=== PATIENT | female | born 1965 | race Caucasian/White ===

== ENCOUNTER 2020-04-07 15:56 | Emergency (ER) | payer OTHER, SELFPAY ==
--- NOTE | ~2020-04-07 | XR_ITS ---
EXAMINATION: XR chest 2V DATE: 04/07/2020 16:15 INDICATION: Wheezing and shortness of breath, history of COVID 19 TECHNIQUE: PA and lateral views of the chest are obtained. COMPARISON: None available FINDINGS: The lungs are free of acute opacities. There is no pleural effusion or pneumothorax. The ca rdiomediastinal silhouette is normal. There is mild thoracic spondylosis. IMPRESSION: 1. No acute cardiopulmonary abnormality. Reviewed, dictated and finalized at location A. RMATION DEVELOPER
[2020-04-07 16:00] VITALS: BP 161/106; PULSE 96; RESP 24; TEMP 36.9; O2SAT 100
--- NOTE | 2020-04-07 16:02 | ED.URI ---
HPI - URI/Sore Throat General Chief Complaint: Upper Respiratory Infection Stated Complaint: chest congestion sob Time Seen by Provider: 04/07/20 16:02 Source: patient and RN notes reviewed History of Present Illness HPI Narrative: Patient is a 55-year-old female who presents the urgent care with complaints of shortness of breath, wheezes, mild cough and chest congestion. Patient states that she was diagnosed with Covid in mid February, off quarantine on February 28 and has been symptomatic for approximately 1 month. Patient states she does not have a doctor and therefore has not followed up with anyone. Patient denies of any fever, nausea, vomiting, chest pain. States that her symptoms are fairly mild with having Covid. Patient has been using NyQuil without any relief. No other acute complaints. Denies any history of pneumonia or bronchitis. No acute distress noted. Patient aware of the plan of care. Some parts of this dictation were generated by voice recognition software and may contain typographical and/or grammatical inaccuracies. Related Data Allergies Allergy/AdvReac Type Severity Reaction Status Date / Time No Known Allergies Allergy Verified 04/07/20 16:09 Review of Systems Review of Systems: Narrative: CONSTITUTIONAL: Denies fever, chills, or sweats. EYES: Denies visual changes, redness, or discharge. ENT: Denies rhinorrhea, congestion, sore throat, or otalgia. CARDIOVASCULAR: Denies chest pain, palpitations, or edema. RESPIRATORY: Reports of cough, wheezing, dyspnea GASTROINTESTINAL: Denies abdominal pain, nausea, vomiting, or diarrhea. GENITOURINARY: Denies dysuria or hematuria. SKIN: Denies rash or itching. MUSCULOSKELETAL: Denies back pain, joint pain, or myalgia. NEUROLOGIC: Denies headache, numbness, or weakness. All other systems reviewed are negative, except as documented in HPI. PMFSH Comments At the time of my signature, I reviewed and agree with the nursing past medical, surgical, social, and family history. There is no relevant family history pertinent to the patient complaint. Exam Narrative: Exam Narrative: GENERAL: This is a well-nourished, well-developed patient, in no apparent distress. HEAD: normocephalic, atraumatic. EYES: PERRL. Sclera clear/white. Vision is grossly intact. EARS: External ears normal NOSE: External nose normal with no obvious nasal discharge, mild bilateral erythemic nares with clear rhinorrhea. THROAT: Mucous membranes moist, posterior pharynx clear. Moderate postnasal drainage NECK: Neck supple CARDIOVASCULAR: Regular rate and rhythm RESPIRATORY: Tight inspiratory and expiratory wheezes throughout, diminished bibasilar SKIN: warm, intact with no suspicious lesions or rash, good texture and turgor. NEURO: awake, alert, and oriented to person, place and time. There were no obvious focal neurologic abnormalities. EXTREMITIES: No clubbing, cyanosis, or edema. Course Vital Signs Vital signs: Vital Signs Temperature 98.5 F 04/07/20 16:00 Pulse Rate 96 04/07/20 16:00 Respiratory Rate 24 H 04/07/20 16:00 Blood Pressure 161/106 H 04/07/20 16:00 Pulse Oximetry 100 04/07/20 16:00 Temperature 98.5 F 04/07/20 16:00 Pulse Rate 96 04/07/20 16:00 Respiratory Rate 24 H 04/07/20 16:00 Blood Pressure 161/106 H 04/07/20 16:00 Pulse Oximetry 100 04/07/20 16:00 Reviewed-patient is informed that they may have pre-hypertension or hypertension based on a blood pressure reading in the department. I recommend the patient call the primary care provider listed on their discharge instructions or a physician of their choice this week to arrange follow-up for further evaluation of possible pre-hypertension or hypertension. MDM - URI/Sore Throat MDM Narrative Medical decision making narrative: Reviewed x-ray results with the patient. She is aware that chest x-ray was negative for pneumonia. Advised the patient, considering her up post Covid symptoms have not improved
== END 2020-04-07 16:35 | disposition home or self-care (01) ==
PROVIDERS: Emergency Provider Nurse Practitioner Family
DX: R05 Cough (principal); R06.2 Wheezing; Z86.16 Personal history of COVID-19
CPT/HCPCS: 71046; 99213; G0463

== ENCOUNTER 2022-08-23 14:02 | Emergency (ER) | payer OTHER, SELFPAY ==
[2022-08-23 14:06] VITALS: BP 143/101; PULSE 92; RESP 20; TEMP 37; O2SAT 100
--- NOTE | 2022-08-23 14:48 | ED.GENADULT ---
HPI - General Adult General Chief complaint: Eye Problems Stated complaint: eyes Source: patient Mode of arrival: ambulatory Limitations: no limitations History of Present Illness HPI narrative: Pt presents for evaluation of itching and redness to her eyes for the past 3 days. She wears glasses but not contacts. No discharge. No visual disturbance. She is not using any medications to assist with her symptoms. She is not aware of any allergies that she may have. Related Data Allergies Allergy/AdvReac Type Severity Reaction Status Date / Time No Known Allergies Allergy Verified 08/23/22 14:26 Review of Systems Review of Systems: CONSTITUTIONAL: Denies fever, chills, or sweats. EYES: Reports redness and itching to both eyes ENT: Denies rhinorrhea, congestion, sore throat, or otalgia. CARDIOVASCULAR: Denies chest pain, palpitations, or edema. RESPIRATORY: Denies cough or dyspnea. GASTROINTESTINAL: Denies abdominal pain, nausea, vomiting, or diarrhea. GENITOURINARY: Denies dysuria or hematuria. SKIN: Denies rash or itching. MUSCULOSKELETAL: Denies back pain, joint pain, or myalgia. NEUROLOGIC: Denies headache, numbness, dizziness, or weakness. PSYCHIATRIC: Denies anxiety or depression. [facility] Past Medical History Medical History (Updated 08/23/22 @ 15:21 by Giovany Rapp, GARMENT STEAMER, ) No pertinent past medical history Surgical History Surgical History No pertinent past surgical history Family History Family History Mother Family history non-contributory Social History Social History Smoking status: Never smoker Substance use: never Gender identity (if verbalized by the patient): Female Spiritual care concerns: No Exam Narrative: GENERAL: Well-appearing, well-nourished, and in no acute distress. HEAD: Normocephalic, atraumatic. EYES: PERRLA and EOMI. I do not appreciate any injection to, or discharge from her eyes ENT: Nares clear, no rhinorrhea or epistaxis. Mucous membranes moist. Oropharynx without tonsillar hypertrophy exudate or other lesions. Bilateral TMs pearly ramsay nonbulging NECK: Supple. No adenopathy or masses. No carotid bruits or JVD CHEST: Clear to auscultation. No respiratory distress. No wheezes rales or rhonchi HEART: Regular rate and rhythm. No murmur heard. Normal peripheral pulses. ABDOMEN: Soft, nontender, nondistended, normal active bowel sounds. EXTREMITIES: Normal range of motion. No edema. SKIN: Warm, dry, no rash. NEURO: No focal deficits. Alert and oriented x3. PSYCH: Normal mood and affect. Course Course Emergency Course: This is a 49-year-old female who presented for evaluation of itching redness to both eyes. Physical exam is unremarkable. Exam is consistent with allergic conjunctivitis. Recommend Claritin and artificial tears. Follow-up outpatient for further evaluation treatment go to the ER for visual disturbance or worsening symptoms. Patient in agreement plan of care. Level of Care: Express Care Visit Vital Signs Vital signs: Vital Signs Temperature 37.0 C 08/23/22 14:06 Pulse Rate 92 08/23/22 14:06 Respiratory Rate 20 08/23/22 14:06 Blood Pressure 143/101 H 08/23/22 14:06 Pulse Oximetry 100 08/23/22 14:06 Oxygen Delivery Room Air 08/23/22 14:06 Temperature 37.0 C 08/23/22 14:06 Pulse Rate 92 08/23/22 14:06 Respiratory Rate 20 08/23/22 14:06 Blood Pressure 143/101 H 08/23/22 14:06 Pulse Oximetry 100 08/23/22 14:06 Oxygen Delivery Room Air 08/23/22 14:06 Medical Decision Making Vital Signs Vital Signs: Vital Signs Temperature 37.0 C 08/23/22 14:06 Pulse Rate 92 08/23/22 14:06 Respiratory Rate 20 08/23/22 14:06 Blood Pressure 143/101 H 08/23/22 14:06 Pulse Oximetry 100 08/23/22 14:06 Oxyge
== END 2022-08-23 14:42 | disposition home or self-care (01) ==
PROVIDERS: Emergency Provider Nurse Practitioner
DX: H10.13 Acute atopic conjunctivitis, bilateral (principal)
CPT/HCPCS: 99213; G0463

== ENCOUNTER 2023-08-25 10:57 | Emergency (ER) | payer SELFPAY ==
--- NOTE | 2023-08-25 11:03 | ED.SKABFB ---
HPI - Skin/Abscess/Foreign Bdy General Chief complaint: Skin/Abscess/Foreign Body Stated complaint: Left ankle infection Time Seen by Provider: 08/25/23 11:10 Source: patient and RN notes reviewed Mode of arrival: ambulatory Limitations: dementia History of Present Illness HPI narrative: 58-year-old female presents concern for redness, swelling to her left ankle. She reports she had a scab on her ankle that her shoe rubbed against and last night she noticed it became swollen, red, tender and was draining. She reports streaking up her leg. She denies fever, body aches, chills. Reports sweats last night. MD complaint: other (Redness) Related Data Allergies Allergy/AdvReac Type Severity Reaction Status Date / Time No Known Allergies Allergy Verified 08/23/22 14:26 Review of Systems Review of Systems: CONSTITUTIONAL: Denies malaise, chills, sweats, or fever. EYES: Denies redness, or discharge. ENT: Denies rhinorrhea, congestion, swollen lips, swollen tongue CARDIOVASCULAR: Denies chest pain, palpitations, or edema. RESPIRATORY: Denies cough or dyspnea. GASTROINTESTINAL: Denies abdominal pain, nausea, vomiting SKIN: Reports redness, swelling covered tenderness to the left ankle. Denies purulent drainage, vesicles, bullae, numbness, pain beyond proportion MUSCULOSKELETAL: Denies joint pain or myalgia. NEUROLOGIC: Denies headache. All systems reviewed & are unremarkable except as noted in HPI and below PMFSH Past Medical History Medical History (Updated 08/25/23 @ 11:19 by Ana Shah NP) No pertinent past medical history Surgical History Surgical History No pertinent past surgical history Family History Family History Mother Family history non-contributory Social History Social History Smoking status: Never smoker Substance use: never Gender identity (if verbalized by the patient): Female Spiritual care concerns: No Comments At time of signature, agree with nursing past medical, surgical, social and family history. There is no relevant family history pertinent to the presenting complaint Exam Narrative: GENERAL: Well-appearing, well-nourished, and in no acute distress. HEAD: Normocephalic, atraumatic. EYES: PERRLA, conjunctivae clear ENT: Mucous membranes moist. NECK: Supple. No lymphadenopathy CHEST: Clear to auscultation. No respiratory distress. HEART: Regular rate and rhythm. SKIN: Warm, dry. Erythema, induration, tenderness, warmth noted to the left ankle, blister with clear fluid drainage noted in the center of the erythema, streaking noted up to the mid calf. No necrosis, ecchymosis, crepitus noted. NEURO: Alert and oriented x3. PSYCH: Normal mood and affect Course Course Emergency Course: Patient is aware of diagnosis, understands and agrees to treatment plan. Anticipatory guidance given. Patient agrees to follow-up as directed and is aware of reasons to seek care at the emergency department. Portions of this record may have been created with voice recognition software Level of Care: Express Care Visit Vital Signs Vital signs: Reviewed. MDM - Skin/Abscess/Foreign Bdy MDM Narrative Medical decision making narrative: I evaluated this in the express care. History is obtained from patient who is an independent historian and physical exam was performed.? Available medical records were reviewed. ? Exam findings and relevant testing show no acute concerns or changes; patient is non-toxic appearing and is in no distress. No risk factors or findings concerning for epidural abscess, diskitis, vertebral osteomyelitis, cord compression, cauda equina, vertebral fracture or bone malignancy, AAA, or pyelonephritis. Patient instructed to consider further imaging and workup through their primary care y
[2023-08-25 11:10] VITALS: BP 129/87; PULSE 107; RESP 16; TEMP 36.1; O2SAT 98
== END 2023-08-25 11:23 | disposition home or self-care (01) ==
PROVIDERS: Emergency Provider Nurse Practitioner
DX: L03.116 Cellulitis of left lower limb (principal)
CPT/HCPCS: 99213; G0463

== ENCOUNTER 2024-07-12 19:21 | Emergency (ER) | payer SELFPAY ==
--- OUTSIDE RECORDS SUMMARY | 2024-07-12 19:23 | XMS_ITS | Clinical Summary ---
Author Organization [facility] Address [address] [place] [address] Care Team Providers Care Stitcher Special Machine Name Role Phone Amara Ariza MD Primary Care Provide r Allergies Active Allergy Reactions Criticality Noted Date Comments Sulfa Rash Medium 05/05/2023 Medications HYDROcodone-acetami nophen (NORCO) 5-325 mg per tabletIndications:P ain Take 1 tablet by mouth every 6 (six) hours as needed for pain for up to 10 doses 10 tablet 4 Active ondansetron ODT (ZOFRAN-ODT) 8 mg disintegrating tablet Take 1 tablet (8 mg total) by mouth every 8 (eight) hours as needed for nausea or vomiting 30 tablet 4 Active Surgical History Surgery Date Site/Laterality Comments TONSILLECTOMY SECTION, CLASSIC Medical History Medical History Date Comments Hypertension Social History Tobacco Use Types Packs/Day Years Used Date Smoking Tobacco: Never Smokeless Tobacco: Never Tobacco Cessation:Counseling Given: Not Answered Alcohol Use Standard Drinks/Week Comments Never 0 (1 standard drink = 0.6 oz pur e alcohol) Personal Safety Answer Date Recorded Have you ever been in or are you currently in a harmful physical or emotional relationship or is someone making you feel afraid or unsafe? Denies 06/12/2023 Comments No Sex and Gender Information Value Date Recorded Sex Assigned at Not on file Legal Sex Female 4:54 PM [employer]KE [employer] Gender Identity Not on file Sexual Orientation Not on file Obstetrics History Last Filed Vital Signs Vital Sign Reading Time Taken Comments Blood Pressure 143/87 06/12/2023 8:30 PM [employer]RAKE REPA[employer] Pulse 92 06/12/2023 8:30 PM BRAKE REPA[employer] Temperature 37.8 C (100 F) 06/12/2023 5:41 PM [employer]KE RE[employer] Respiratory Rate 22 06/12/2023 8:30 PM BRAKE REPA[employer] Oxygen Saturation 97% 06/12/2023 8:30 PM [employer]RAKE REPA[employer] Inhaled Oxygen Concentration - - Weight 73 kg (161 lb) 06/12/2023 5:41 PM [employer]RAKE REPA[employer] Height 167.6 cm (5' 6 ) 06/12/2023 5:41 PM [employer]RAKE REPA[employer] Body Mass Index 25.99 06/12/2023 5:41 PM BRAKE REPAIRER [employer] Plan of Treatment Health Maintenance Due Date Last Done Comments Breast Cancer Screening-Mammogram 1964 Cervical Cancer Screening 1964 Colon Cancer Screening-Colonoscopy 1964 Depression Screening 1964 Hepatitis C Screening 1964 DTaP/Tdap/Td Vaccine (1 - Tdap) 1975 Hepatitis B Screening 1982 Regular Well Visit/Exam 18-64 1982 Zoster Vaccine (1 of 2) 2014 Influenza Vaccine (#1) 2023 Pneumococcal vaccine <65 Aged Out No longer eligible based on patient's age to complete this topic Care Teams Stitcher Special Machine Relationship Specialty Start Date End Date Amara Ariza MD [address] [place] [address] DR TILLMAN B [address] [id number] PCP - General Family Practice 05/27/23
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
--- OUTSIDE RECORDS SUMMARY | 2024-07-12 19:23 | XMS_ITS | Referral Summary ---
Author Organization [facility] Address [address] [place] [address] Care Team Providers Care Database Architect Name Role Phone Amara Ariza MD Primary [...] nausea or vomiting 30 tablet 4 Active Social History Tobacco Use Types Packs/Day Years [...] on file Legal Sex Female 4:54 PM DIPLOMA MAKER Gender Identity Not on file Sexual Orientation Not on file Last Filed Vital Signs Vital Sign Reading Time Taken Comments Blood Pressure 143/87 06/12/2023 8:30 PM DIPLOMA MAKER Pulse 92 06/12/2023 8:30 PM DIPLOMA MAKER Temperature 37.8 C (100 F) 06/12/2023 5:41 PM DIPLOMA MAKER Respiratory Rate 22 06/12/2023 8:30 PM DIPLOMA MAKER Oxygen Saturation 97% 06/12/2023 8:30 PM DIPLOMA MAKER Inhaled Oxygen Concentration - - Weight 73 kg (161 lb) 06/12/2023 5:41 PM DIPLOMA MAKER Height 167.6 cm (5' 6 ) 06/12/2023 5:41 PM DIPLOMA MAKER Body Mass Index 25.99 06/12/2023 5:41 PM DIPLOMA MAKER Plan of Treatment Not on file Care Teams Database Architect Relationship Specialty Start Date End Date Amara Ariza MD [address] [facility] [address] [place] [address] PCP - General Family Practice 05/27/23
--- OUTSIDE RECORDS SUMMARY | 2024-07-12 19:23 | XMS_ITS | Data Portability ---
[facility] Address [address] [place] [address] Assessment Encounter Date Assessment Date Assessment LastModified by Organization Details LastModified Time 05/25/2023 05/25/2023 A total of 60 minutes was spent on this visit reviewing previous notes, counseling the patient on their medical issues, ordering tests, adjusting meds, and documenting the findings in the note. dania Not available 05/26/2023 11:36:09 Plan of Treatment Reminders Order Date Submit Date Provider Last Modified By Organization Details Last Modified Time Details Appointments None recorded. Lab None recorded. Referral gastroenter ologist referral 2023 024 [facility] Manuel Lopez, 4 [facility] , [facility] [address], [address], 4 16:24:34 Procedures None recorded. Surgeries None recorded. Imaging US, echocardiog tien 2023 024 [facility], [address] [place] [address] [place], [address], 4 10:53:58 Medication Orders escitalopra m 10 mg tablet 2023 024 [facility] [place], [facility] [address], [place], [address], 4 12:48:32 Patient TargetsNo targets recorded. Patient Instructions Encounter Date Encounter Id Patient Instructions Last Modified By Organization Details Last Modified Time 05/25/2023 [id number] A healthy lifestyle: care instructions dania Not available 05/26/2023 11:36:10 Aneurysm - this is small enough that I can monitor it, you will get a CT scan yearly as long as it stays stable. I'm also ordering a heart ultrasound (ECHO) to make sure it is pumping properly; if this is ok you don't have to plan to do this test regularly Liver cirrhosis - the CT scan suggested this but we need more testing to confirm. I'm sending you to a GI doctor who can do the testing. Blood pressure - please be sure to check pressures twice a day for the next week. Sometimes blood pressure is fine in the AM, but starts to go up later in the day. Chest pain - we will monitor this for now. Let me know if you have more symptoms. [email or web address] Not available 05/25/2023 12:55:31 Reason for Referral Concierge Referral for Cirrhosis of liver Referring Physician: Amara Ariza, Family Medicine, Encounter Date: 05/25/2023 Results Created Date Observation Date Name Description Value Unit Range Abnormal Flag Note LastModifiedBy Organization Detail LastModifiedTime 08/12/19 24 08/12/2023 , echo ardio gram No observ ation record ed. [email or web address] [address], [place], [address], 08/16/2023 14:28:30 Result Notes None recorded. Problems Name Problem SNOMED Code Status Onset Date Resolution Date Notes Provider Name and Address Organization Details Recorded Time Aneurysm of ascending aorta 796083892 Active 2023 Amara Ariza MD Attn: Accounting ,[address] [place], [address] , [facility] 4 11:21:02 Essential hypertension 76386989 Active 2023 Amara Ariza MD Attn: Accounting ,[address] [place], [address] , [place] 4 11:21:11 Cirrhosis of liver 68450220 Active 2023 Amara Ariza MD Attn: Accounting ,[address] [place], [address] , [facility] 4 11:21:19 Scoliosis of lumbar spine 124282857 Active 2023 Amara Ariza MD Attn: Accounting ,[address] [facility], [place], [address] , [facility] 4 11:21:26 Anxiety 99224819 Active 2023 Amara Ariza MD Attn: Accounting ,[address] [facility], [place], [address] , [facility] 4 11:21:31 Ex-smoker 1033977 Active 2023 Amara Ariza MD Attn: Accounting ,[address] [place], [address] , [facility] 4 11:21:57 History of cholecystecto 741404663 Active 2023 Amara Ariza MD Attn: Accounting ,[address] [place], [address] , [facility] 4 13:59:29 Problem Notes None recorded. Procedures Surgical History Date Name Laterality Status Provider Name and Address Organization Details Recorded Time 08/09/19 24 cholecystectomy completed Bessie Medina MA [facility] 08/16/2023 11:55:22 01/02/19 93 Caesarean Section completed Millie Kern MA [facility] 05/25/2023 12:04:54 08/09/18 90 Caesarean Section completed Millie Kern MA [facility] 05/25/2023 12:04:48 Caesarean Section completed Millie eKrn MA [facility] 05/25/2023 12:04:45 Removal of tonsils completed Millie Kern MA [facility] 05/25/2023 12:05:25 Imaging Results Imaging Date Name Status LastModified by Organization Details LastModified Time 08/12/2023 US, echocardiogram completed [email or web address] [address] [place], [address], 08/16/2023 14:28:30 Procedure Notes None recorded. Medical Equipment None Reported. Medications Name Sig Start Date Stop Date Status Note LastModified by Organization Details LastModified Time oxycodone 5 mg tablet TAKE 1 TABLET BY MOUTH EVERY 4 HOURS NEEDED FOR SEVERE PAIN active Not Available Not Available No t Available escitalopram 10 mg tablet Take 1 tablet every day by oral route. 024 active Not Available Not Available Not Avai lable Tylenol 325 mg capsule Take by oral route. active Not Available Not Available No t Available Vitals Date Recorded Body height Body mass index (BMI) Body weight Respiratory rate Body temperature Oxygen saturation Oxygen saturation in Arterial blood by Pulse oximetry Heart rate Systolic blood pressure Diastolic blood pressure Provider Name and Address Organization Details Last Updated DateTime 4 167.64 cm 26 kg/m2 29222.1 2 g 16 /min 98.1 [degF] 98 % 98 % 106 /min 163 mm[Hg] 112 mm[Hg] Mlilie Kern MA [facility] 4 12:11:30 Date Recorded Body height Body temperature Respiratory rate Heart rate Oxygen saturation Oxygen saturation in Arterial blood by Pulse oximetry Body mass index (BMI) Body weight Systolic blood pressure Diastolic blood pressure Provider Name and Address Organization Details Last Updated DateTime 4 167.64 cm 97.5 [degF] 16 /min 94 /min 99 % 99 % 25.2 kg/m2 83273.1 6 g 137 mm[Hg] 90 mm[Hg] Bessie Medina MA [facility] 4 11:53:38 Social History Question Answer Notes LastModified by Organizat ion Details LastModified Time Tobacco Smoking Status Former Smoker Millie Kern MA [facility] 05/25/2023 12:02:52 Do You Have An Advance Directive? No Information not available 05/25/2023 What Is Your Level Of Alcohol Consumption? None Quit 7 Yrs Ago Information not available 05/25/2023 Are You Blind Or Do You Have Difficulty Seeing? Yes Glasses Information not available 05/25/2023 What Is Your Level Of Caffeine Consumption? Heavy Pepsi Or White Soda Information not available 05/25/2023 In The 14 Days Before Symptom Onset, Have You Had Close Contact With A [facility]- While That Case Was Ill? No Information not available 05/25/2023 In The 14 Days Before Symptom Onset, Have You Had Close Contact With A Person Who Is Under Investigation For COVID-19 While That Person Was Ill? No Information not available 05/25/2023 Have You Been To An Area Known To Be High Risk For COVID-19? No Information not available 05/25/2023 Are You Currently Employed? Yes Information not available 05/25/2023 Are You Deaf Or Do You Have Serious Difficulty Hearing? No Information not available 05/25/2023 What Type Of Diet Are You Following? 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 No Information not available 05/25/2023 What Was The Date Of Your Most Recent Tobacco Screening? 08/16/2023 Information not available 08/16/2023 How Many Children Do You Have? 3 Information not available 05/25/2023 What Is Your Relationship Status? Information not available 05/25/2023 Do You Use Your Seat Belt Or Car Seat Routinely? Yes Information not available 05/25/2023 Are You Sexually Active? No Information not available 05/25/2023 Do You Have Smoke And Carbon Monoxide Detectors In Your Home? Yes Information not available 05/25/2023 At What Age Did You Start Smoking Tobacco? 17 Information not available 05/25/2023 Are You Passively Exposed To Smoke? No Information no t available 05/25/2023 Do You Feel Stressed (tense, Restless, Nervous, Or Anxious, Or Unable To Sleep At Night)? [id number] Information not available 05/25/2023 Do You Use Any Illicit Or Recreational Drugs? Yes MJ Information not available 05/25/2023 Do You Use Sunscreen Routinely? No Information not available 05/25/2023 Has Tobacco Cessation Counseling Been Provided? Yes Information not available 05/25/2023 On What Date Was Tobacco Cessation Counseling Provided? 08/16/2023 Information not available 08/16/2023 Sex: Female Functional Status Question Answer Note LastModified by Organization D etails LastModified Time Are you able to care for yourself? Yes Information not available 05/25/2023 What is your exercise level? Moderate Information not available 05/25/2023 Mental Status None recorded. Family History Relationship Description Onset Age of this Age Resolved Age Notes LastModified by Organization Details LastModified Time Maternal Grandmother Aneurysm [email or web address] Not available 05/07 12:01:13 Notes:cancer-mother,08/16/23 Medical History Condition Response Coronary Artery Disease N Other N Atrial Fibrillation N High Blood Pressure N Depression N COPD N Blood Clots N Anxiety Disorder N Muscle, Joint, or Bone Problems N Arthritis N Acid Reflux (GERD) N Cancer N Stroke N Headaches Y Kidney or Bladder Problems N Eating Disorder N Skin Problems N Asthma N Allergies N Substance Abuse N Hepatitis N ADHD N High Cholesterol N Liver Disease Y Schizophrenia N Thyroid Problems Y GI Problems Y Anemia N Heart Attack (TN) N Diabetes N Seizures/Epilepsy N Osteoporosis N Heart Failure N Gynecological History Statement/Question Response Date of Last Mammogram Date of LMP On BCP's at Conception? Y Menses Monthly N Date of Last Pap Smear Age at Menarche 14 Current Control Method None Age at First Child 17 Obstetrics History GPAL:G 3 P 3 0 0 3 Type Value Full Term 3 Living 3 Total 3 Past Encounters Encounter ID Performer Location Encounter Start Date Encounter Closed Date Diagnosis/Indication Diagnosis SNOMED-CT Code Diagnosis ICD10 Code Diagnosis Note [id number] MD Harsha Crowder 14 IM 4 [facility] [address] [place] [address] [place] [id number] 05/25/2023 11:44:09 05/26/2023 12:46:00 Overweight 768672605 E66.3 Scoliosis of lumbar spine 908242046 M41.86 Ex-smoker 4022273 Z87.89 1 Essential hypertension 16789927 I10 Cirrhosis of liver 007 K74.60 Aneurysm o f ascending aorta 944818591 I71.21 Anxiety 93089172 F41.9 [id number] MD Harsha Crowder 14 IM 4 [facility] [address] 08/16/2023 11:28:11 08/18/2023 12:50:50 Hyperlipidemia 93572574 E78.5 Generalize d anxiety disorder 21219348 F41.1 Cirrhosis of liver 007 K74.60 Essential hypertension 78811247 I10 Anxiety 52781911 F41.9 Aneurysm o f ascending aorta 409156505 I71.21 History of cholecystectomy 364189441 Z90.49 Health Concerns Section Related Observation LastModified by Organization Detai ls LastModified Time None Recorded Concern Status LastModified by Organization Details LastModified Time None Recorded Advance Directives Directive N: Payers Encounter Date Sequence Insurance Name Policy Number Policy Shoemaker Covered Member ID Shoemaker Member ID Guarantor Name 05/25/2023 1 [place]ICA[place]: [facility] Viviana Alejandro [id number] Viviana Alejandro Notes Date Note Type Note Provider Name and Address Organization Details Recorded Time 05/25/2023 text/html Here to est care and discuss ER visit. Has not seen doctor in many years. Went to ER due to chest pain - sharp upper quadrants bilaterally. Exam was unremarkable other than elevated BP at 160/106Workup included flu/covid, lipase, trop, mg, pt/inr, UA, CBC, CMP, ekg, BNP DDimer --> CTA and LE duplexOnly remarkable results were widened ascending aorta at 4.0cm, possible cirrhosis of liver, severe lumbar scoliosis, UA suggestive of infection with elevated WBC. She was treated for the UTI and advised to f/u with pcp. Since visit chest pain/upper abd pain has resolved but she's very worried about the above findings. AneurysmHTNAsymptomat ic. Does have +FMH. Has been checking BP with new arm cuff in AM and running in range.AP: Discussed natural course and hx of aneursym. Will check echo but if ok, plan to reimage in 1 year with CTA. For BP, likely white coat HTN but she'll check in afternoon/evenings too and call me if elevated. Will check lipid panel before next visit. CirrhosisDoes have hx of etoh use but quit drinking about 5 years ago. Does use tylenol regularly for dental pain but uses less than max doses. passed from complications re: to cirrhosis.AP: Will refer to GI for eval ScoliosisLow back painHas had sciatica from time to time but not overly bothered at this time AnxietyFeels anxious often but relieve wtih cannabis PRN. No depression. Doesn't feel like chest pain is related.AP: Discussed that cannabis can worsen anxiety. Doesn't want to try any medication or CBT at this time. Will monitor for more episodes of chest pain. History of tobacco useCannabis userDoes have a daily cough but not overly bothered by it.AP: Focused on other issues today, need to get tobacco hx and decide if candidate for LDCT. Feels breathing is ok and declines spirometry today. UTIFinished abx. Was asymptomatic.AP: Will monitor for recurrent sx PreventionColorectal screening:Cervical cancer screening:Breast cancer screening:Osteoporosi s screening:Hep C/STI screening:LDCT:Vaccin es:AP: Discuss preventive items next visit Social:Lives with daughter and her family. Has apartment in basement. Gets along well with them. Works as a retail cashier associate. No longer smokes tobacco but uses cannabis daily, was up to 5 blunts/day but trying to decrease. Amara Ariza MD Attn: Accounting,[address] [facility], [place], [address], [facility] 05/26/2023 11:50:35 08/16/2023 text/html Here for f/u aft er cholecystectomy and to discuss chronic issues Est with me after emergency room visit for sharp upper quadrant pain bilateral leg. Had several more ER visits for similar pain before she finally went to [facility] and was diagnosed with cholecystitis, she is about a week status post laparoscopic cholecystectomy. Doing well, pain is controlled, sticking to gallbladder diet but otherwise eating fine, normal output. AneurysmHTNAsymptomat ic. Does have +FMH. Has been checking BP with new arm cuff in AM and running in range.AP: Discussed natural course and hx of aneursym. Will check echo but if ok, plan to reimage in 1 year with CTA. For BP, likely white coat HTN but she'll check in afternoon/evenings too and call me if elevated. Will check lipid panel before next visit.: She did get her echocardiogram which did not demonstrate aneurysm. Not checking blood pressures at home regularly, highest it runs is 130 systolic. Did not have a chance to get lipid panel doneAP: Lipid panel before she follows up with new PCP in 1 month. Plan to repeat CTA around May 2024, if still has widened aorta at that time should likely see vascular surgery CirrhosisDoes have hx of etoh use but quit drinking about 5 years ago. Does use tylenol regularly for dental pain but uses less than max doses. passed from complications re: to cirrhosis. At last visit was referred to GI, she has an appointment to see them in OctoberAP: Follow-up per GI ScoliosisLow back painHas had sciatica from time to time but not overly bothered at this time AnxietyFeels anxious often but relieve wtih cannabis PRN. No depression. At last visit she declines trying any medication or CBT for this problem but now she is interested.AP: will do trial of Lexapro, side effects discussed, follow-up in 4 to 6 weeks History of tobacco useCannabis userDoes have a daily cough but not overly bothered by it.AP: Focused on other issues today, need to get tobacco hx and decide if candidate for LDCT. Feels breathing is ok and declines spirometry today. PreventionColorectal screening:Cervical cancer screening:Breast cancer screening:Osteoporosi s screening:Hep C/STI screening:LDCT:Vaccin es:AP: Discuss preventive items next visit Social:Lives with daughter and her family. Has apartment in basement. Gets along well with them. Works as a retail cashier associate. No longer smokes tobacco but uses cannabis daily, was up to 5 blunts/day but trying to decrease. Amara Ariza MD Attn: Accounting[address] [place], [address], [place] [facility] 08/16/2023 14:00:08 OBGyn Episode Ob Episode Information Episode Created Date Number of Fetuses Patient Bloodtype Patient rh Status Prepregnancy Weight lbs Domestic Partner Domestic Partner Phone Father Name Dental Chair Assembler Status 05/25/19 24 1 CLOSED Fetus Data First Name Last Name Admitted to NICU Weight (g) Sex Living Outcome Pediatric Complications Fetus ID Race Codes Race Delivery Type [id number] Biju Calculation Initial Biju Date Initial Exam Date Initial Exam Provider Initial Ultrasound Date Last Menstrual Period Date Ultra Sound Weeks Gestation 0 Eighteen To Twenty Week Biju Update Ultra Sound Date Fundal Height At Umbil Quickening Date Ultra Sound Latest Weeks Gestation Final Biju Confirmed By Final Biju Confirmed Date Final Biju Date Ultra Sound Latest Days Gestation 0 0 Menstrual History Last Menstrual Date Menses Monthly On Bcp Conception Prior Menses Frequency Hcg Plus Date Menarche Onset Age Delivery Information Delivery Date Delivery Type Labor Anesthesia Weeks Gestation Incision Type Labor Labor Length Hrs Delivered By Post Complications Tubal Sterilization Discharge Date Comments 3 Discharge Information Feeding Method Contraceptive Method Maternal HG B and HCT Levels Ob Episode Information Episode Created Date Number of Fetuses Patient Bloodtype Patient rh Status Prepregnancy Weight lbs Domestic Partner Domestic Partner Phone Father Name Dental Chair Assembler Status 05/25/19 24 1 CLOSED Fetus Data First Name Last Name Admitted to NICU Weight (g) Sex Living Outcome Pediatric Complications Fetus ID Race Codes Race Delivery Type [id number] Biju Calculation Initial Biju Date Initial Exam Date Initial Exam Provider Initial Ultrasound Date Last Menstrual Period Date Ultra Sound Weeks Gestation 0 Eighteen To Twenty Week Biju Update Ultra Sound Date Fundal Height At Umbil Quickening Date Ultra Sound Latest Weeks Gestation Final Biju Confirmed By Final Biju Confirmed Date Final Biju Date Ultra Sound Latest Days Gestation 0 0 Menstrual History Last Menstrual Date Menses Monthly On Bcp Conception Prior Menses Frequency Hcg Plus Date Menarche Onset Age Delivery Information Delivery Date Delivery Type Labor Anesthesia Weeks Gestation Incision Type Labor Labor Length Hrs Delivered By Post Complications Tubal Sterilization Discharge Date Comments 3 Discharge Information Feeding Method Contraceptive Method Maternal HG B and HCT Levels Ob Episode Information Episode Created Date Number of Fetuses Patient Bloodtype Patient rh Status Prepregnancy Weight lbs Domestic Partner Domestic Partner Phone Father Name Dental Chair Assembler Status 05/25/19 24 1 CLOSED Fetus Data First Name Last Name Admitted to NICU Weight (g) Sex Living Outcome Pediatric Complications Fetus ID Race Codes Race Delivery Type [id number] Biju Calculation Initial Biju Date Initial Exam Date Initial Exam Provider Initial Ultrasound Date Last Menstrual Period Date Ultra Sound Weeks Gestation 0 Eighteen To Twenty Week Biju Update Ultra Sound Date Fundal Height At Umbil Quickening Date Ultra Sound Latest Weeks Gestation Final Biju Confirmed By Final Biju Confirmed Date Final Biju Date Ultra Sound Latest Days Gestation 0 0 Menstrual History Last Menstrual Date Menses Monthly On Bcp Conception Prior Menses Frequency Hcg Plus Date Menarche Onset Age Delivery Information Delivery Date Delivery Type Labor Anesthesia Weeks Gestation Incision Type Labor Labor Length Hrs Delivered By Post Complications Tubal Sterilization Discharge Date Comments 0 Discharge Information Feeding Method Contraceptive Method Maternal HG B and HCT Levels
--- OUTSIDE RECORDS SUMMARY | 2024-07-12 19:23 | XMS_ITS | Encounter Summary ---
Author Organization [facility] Address [address] [place] [address] Phone Care Team Providers Care Cap Cutter Name Role Phone Amara Ariza MD Primary Care Provide r Provider, Unknown Primary Care Provider Unavaila ble Encounter Details Date Type Department Care Team (Late st Contact Info) Description 05/17/2024 Results Follow-Up [facility] [address] [place] [id number] Jailyn Parra RN [place] Social History Tobacco Use Types Packs/Day Years Used Date Smoking Tobacco: Former Cigarettes 0.5 14 1 980 - 1993 Smokeless Tobacco: Never Alcohol Use Standard Drinks/Week Comments Not Currently 0 (1 standard drink = 0.6 oz pur e alcohol) [facility] Utilities Answer Date Recorded In the past 12 months has ePrep, gas, oil, or water [employer] threatened to shut off services in your home? Patient declined 08/08/2023 Social Connection and Isolation Panel [NHANES] A nswer Date Recorded In a typical week, how many times do you talk on the phone with family, friends, or neighbors? Patient declined 08/08/2023 How often do you get togethe r with friends or relatives? Patient declined 08/08/2023 How often do you attend mandaeism or baptist serv ices? Patient declined 08/08/2023 Do you belong to any clubs o r organizations such as mandaeism groups, unions, fraternal or athletic groups, or [...] medical care, and heating? Patient declined 08/08/2023 [facility] - Occupational Stress Questionnaire Answer [...] place to sleep or slept in a group home (including now)? Patient declined 08/08/2023 Sexually Active Control Partners Comments Not Currently Male Comments No Sex and Gender Information Value Date Recorded Sex Assigned at Not on file Legal Sex Female 10:00 PM CDT Gender Identity Not on file Sexual Orientation Not on file documented as of this encounter Plan of Treatment Not on file documented as of this encounter Visit Diagnoses Not on filedocumented in this encounter Care Teams Cap Cutter Relationship Specialty Start Date End Date Amara Ariza MD [address] [place] [address] [address] PCP - General Family Medicine 08/08/23 06/10/24 Provider, Unknown UNKNOWN PCP - General 06/11/24 documented as of this encounter
[2024-07-12 19:26] VITALS: BP 150/89; PULSE 86; RESP 20; TEMP 36.6; O2SAT 98
--- NOTE | 2024-07-12 19:41 | ED_ITS ---
HPI - Wound/Laceration General Chief Complaint: Wound/Laceration Stated Complaint: cut on right leg Time Seen by Provider: 07/12/24 19:42 Source: patient Mode of arrival: ambulatory Limitations: no limitations History of Present Illness HPI narrative: 67-year-old female presented for complaint of laceration to the right lower leg. Sustained yesterday. She states she cut her leg on a milk crate. She cleanse the site hydrogen peroxide and has applied Neosporin and a Band-Aid. Endorses some redness surrounding the wound. Denies swelling, or any drainage. Denies numbness, tingling, weakness of the extremity. Tetanus utd. Related Data Allergies Allergy/AdvReac Type Severity Reaction Status Date / Time Sulfa (Sulfonamide Allergy Unknown Unknown Verified 07/12/24 19:32 Antibiotics) Review of Systems Review of Systems: CONSTITUTIONAL: Denies body aches, fever, chills, or sweats. CARDIOVASCULAR: Denies chest pain, palpitations, or edema. RESPIRATORY: Denies cough or dyspnea. GASTROINTESTINAL: Denies abdominal pain, nausea, vomiting, or diarrhea. SKIN: per HPI MUSCULOSKELETAL: Denies back pain, joint pain, or myalgia. NEUROLOGIC: Denies headache, numbness, tingling, or weakness. [facility] Past Medical History Medical History (Updated 07/12/24 @ 19:47 by Susan Cary, AVIS) No pertinent past medical history Surgical History Surgical History No pertinent past surgical history Family History Family History Mother Family history non-contributory Social History Social History Smoking status: Never smoker Substance use: never Gender identity (if verbalized by the patient): Female Spiritual care concerns: No Comments At time of signature, I have reviewed and agree with nursing past medical, surgical, social and family history unless otherwise noted. Please see nursing chart for further information. There is no relevant family history pertinent to the presenting complaint Exam Narrative: GENERAL: Well-appearing HEAD: Normocephalic, atraumatic. EYES: conjunctivae clear, and EOMI. ENT: Mucous membranes moist. Oropharynx without edema, erythema or lesions. NECK: Supple. No lymphadenopathy CHEST: Clear to auscultation. HEART: Regular rate and rhythm. SKIN: Warm, dry. Right anterior ankle with 2cm linear superficial abrasion, scant serous drainage to medial aspect. Nontender. No swelling. Mild erythema surrounding wound 6cm diameter. NEURO: Alert and oriented x3. Course Course Emergency Course: Patient is aware of diagnosis, understands and agrees to treatment plan. Anticipatory guidance given. Patient agrees to follow-up as directed and is aware of reasons to seek care at the emergency department. Portions of this record may have been created with voice recognition software Level of Care: Express Care Visit Vital Signs Vital signs: Vital Signs Temperature 98 F 07/12/24 19:26 Pulse Rate 86 07/12/24 19:26 Respiratory Rate 20 07/12/24 19:26 Blood Pressure 150/89 H 07/12/24 19:26 Pulse Oximetry 98 07/12/24 19:26 Oxygen Delivery Room Air 07/12/24 19:26 Temperature 98 F 07/12/24 19:26 Pulse Rate 86 07/12/24 19:26 Respiratory Rate 20 07/12/24 19:26 Blood Pressure 150/89 H 07/12/24 19:26 Pulse Oximetry 98 07/12/24 19:26 Oxygen Delivery Room Air 07/12/24 19:26 Reviewed MDM - Wound/Laceration MDM Narrative Medical decision making narrative: Discussed physical exam findings c/w abrasion, the erythema most likely due to adhesive but will send abx. No swelling. Advised supportive measures and signs/symptoms to go to the ER. Pt is appropriate for outpt treatment and f/u. Differential Diagnosis Differential diagnosis: Likely laceration, abrasion and avulsion of skin Discharge Plan Discharge Clinical Impression: Abrasion Patient Disposition: Home Condition: Stable Instructions: Antibiotic Form, Laceration (ED) Additional Instructions: Keep the area clean and dry - cleanse with warm water and mild soap and allow to fully dry. Ok to apply neosporin to the site Keep it open to air (no bandages unless draining or at risk for contamination) Watch for worsening symptoms including pain, redness, swelling, streaking, pus/drainage, fever. Go to the ER with any of these symptoms or concerns. Follow up with primary care provider in 1 week as needed. Patient Language: Wolof Prescriptions: New cephalexin 500 mg capsule 500 mg PO Q12H 5 Days Qty: 10 0RF Follow-up/Referrals: PHYSICIAN,PROCUREMENT INTERN [Primary Care Provider] - Time of Disposition: 19:48
== END 2024-07-12 19:51 | disposition home or self-care (01) ==
PROVIDERS: Emergency Provider Nurse Practitioner Family
DX: S90.511A Abrasion, right ankle, initial encounter (principal); W45.8XXA Other foreign body or object entering through skin, initial encounter
CPT/HCPCS: 99213; G0463